=== PATIENT | female | born 2000 | race American Indian/Alaskan Native ===

== ENCOUNTER 2021-12-02 22:36 | Emergency (ER) | payer SELFPAY ==
--- NOTE | 2021-12-02 23:19 | XRay Report ---
CHEST 2 VIEWS INDICATION / CLINICAL INFORMATION: Upper Respiratory Infection. COMPARISON: None available. FINDINGS: SUPPORT DEVICES: None. HEART / MEDIASTINUM: No significant abnormality. LUNGS / PLEURA: There is bilateral peribronchial thickening. The lungs are otherwise clear. No signif icant pleural effusion. No pneumothorax. ADDITIONAL FINDINGS: No significant additional findings. IMPRESSION: Findings suggestive of reactive airway disease versus bronchitis. No other acute findings in the ches t. Signer Name: Armani Harrington MD Signed: 12/02/2021 11:14 PM Workstation Name: [id number]
[2021-12-03 05:43] VITALS: BP 142/87
[2021-12-03] MEDS ORDERED: BENZONATATE 100 MG CAP PO ONE (09:36)
[2021-12-03] MEDS ORDERED: predniSONE 20 MG TAB PO ONE (09:36)
[2021-12-03] MEDS ORDERED: IPRATROPIUM/ALBUTEROL SULFATE 3 ML AMPUL.NEB IH ONE (09:36)
[2021-12-03] MEDS ORDERED: IBUPROFEN 800 MG TAB PO ONE (10:01)
--- NOTE | 2021-12-03 10:06 | Emergency Department Report ---
- General Chief Complaint: Upper Respiratory Infection Stated Complaint: ABD PAIN,CHEST PAIN Time Seen by Provider: 12/03/21 08:35 Source: patient Mode of arrival: Ambulatory Limitations: No Limitations - History of Present Illness Initial Comments: This is a 21-year-old female nontoxic, well nourished in appearance, no acute signs of distress presents to the ED with c/o of productive cough, chills, body aches, rhinorrhea, wheezing, nasal congestion x several days. Patient denies being COVID vaccinated. Patient describes productive cough as yellow mucus production. Patient denies any sick contacts. Patient denies any recent travels, long car, recent hospital stays. Patient denies any calf pain or calf tenderness. Patient denies any chest pain, short of breath, nausea, vomiting, hemoptysis, numbness, tingling, headache or stiff neck. Patient stated allergies to PCN. MD Complaint: cough, rhinorrhea, nasal congestion -: days(s) Severity: mild Severity scale (0 -10): 3 Quality: aching Consistency: constant Improves With: nothing Worsens With: nothing Associated Symptoms: chills, rhinorrhea, nasal congestion, cough. denies: fever, myalgias, diaphoresis, headache, sore throat, stiff neck, chest pain, shortness of breath, abdominal pain, nausea, vomiting, diarrhea, dysuria, rash, confusion, right sweats, weight loss, epistaxis, hoarseness, ear pain - Related Data Previous Rx's Medication Instructions Recorded Last Taken Type Albuterol Mdi (or & Nicu Only) 2 puff IH QID PRN #8.5 gram 12/03/21 Unknown Rx [ProAir HFA Inhaler] Benzonatate [Tessalon Perles] 100 mg PO Q8HR PRN #12 cap 12/03/21 Unknown Rx Allergies Allergy/AdvReac Type Severity Reaction Status Date / Time Penicillins Allergy Hives Verified 12/02/21 22:39 ED Review of Systems ROS: Stated complaint: ABD PAIN,CHEST PAIN Other details as noted in HPI Comment: All other systems reviewed and negative Constitutional: chills. denies: fever Eyes: denies: eye pain, eye discharge, vision change ENT: congestion. denies: ear pain, throat pain Respiratory: cough, wheezing. denies: shortness of breath Cardiovascular: denies: chest pain, palpitations Endocrine: no symptoms reported Gastrointestinal: denies: abdominal pain, nausea, diarrhea Genitourinary: denies: urgency, dysuria, discharge Musculoskeletal: denies: back pain, joint swelling, arthralgia Skin: denies: rash, lesions Neurological: denies: headache, weakness, paresthesias Psychiatric: denies: anxiety, depression Hematological/Lymphatic: denies: easy bleeding, easy bruising ED Past Medical Hx - Past Medical History Previous Medical History?: No - Surgical History Past Surgical History?: No - Social History Smoking Status: Current Every Day Smoker Substance Use Type: Marijuana - Medications Home Medications: Home Medications Medication Instructions Recorded Confirmed Last Taken Type Albuterol Mdi (or & Nicu Only) 2 puff IH QID PRN #8.5 gram 12/03/21 Unknown Rx [ProAir HFA Inhaler] Benzonatate [Tessalon Perles] 100 mg PO Q8HR PRN #12 cap 12/03/21 Unknown Rx ED Physical Exam - General Limitations: No Limitations General appearance: alert, in no apparent distress - Head Head exam: Present: atraumatic, normocephalic - Eye Eye exam: Present: normal appearance - ENT ENT exam: Present: normal exam, normal orophraynx - Neck Neck exam: Present: normal inspection, full ROM. Absent: tenderness, meningismus, lymphadenopathy - Respiratory Respiratory exam: Present: wheezes (Bilateral expiratory wheezing). Absent: respiratory distress, rales, rhonchi, stridor, chest wall tenderness, accessory muscle use, decreased breath sounds, prolonged expiratory - Cardiovascular Cardiovascular Exam: Present: normal rhythm, normal heart sounds. Absent: systolic murmur, diastolic murmur, rubs, gallop - GI/Abdominal GI/Abdominal exam: Present: soft. Absent: distended, tenderness - Extremities Exam Extremities exam: Present: normal inspection, full ROM, normal capillary refill. Absent: tenderness - Back Exam Back exam: Present: normal inspection, full ROM. Absent: tenderness, CVA tenderness (R), CVA tenderness (L), muscle spasm, paraspinal tenderness, vertebral tenderness, rash noted - Neurological Exam Neurological exam: Present: alert, oriented X3, normal gait - Psychiatric Psychiatric exam: Present: normal affect, normal mood - Skin Skin exam: Present: warm, dry, intact, normal color. Absent: rash ED Course Vital Signs 12/02/21 12/03/21 12/03/21 22:39 01:02 05:42 Temperature 99.4 F Pulse Rate 122 H 115 H 107 H Respiratory 18 16 18 Rate Blood Pressure 148/81 Blood Pressure 140/81 142/87 [Left] O2 Sat by Pulse 97 100 100 Oximetry 12/03/21 10:43 Temperature 98.8 F Pulse Rate 88 Respiratory 18 Rate Blood Pressure Blood Pressure [Left] O2 Sat by Pulse 100 Oximetry - Reevaluation(s) Reevaluation #1: 12/03/21 10:06 Patient is speaking in full sentences with no signs of distress noted. ED Medical Decision Making - Radiology Data [facility] [address] [place] [address] XRay Report Signed Patient: LAQUITA LUCAS MR#: [id number] : 2000 Acct:[id number] Age/Sex: 21 / F ADM Date: 12/02/21 Loc: ED Attending Dr: Ordering Physician: JULIETH CUMMINS MD Date of Service: 12/02/21 Procedure(s): XR chest routine 2V Accession Number(s): [id number] cc: JULIETH CUMMINS MD Fluoro Time In Minutes: CHEST 2 VIEWS INDICATION / CLINICAL INFORMATION: Upper Respiratory Infection. COMPARISON: None available. FINDINGS: SUPPORT DEVICES: None. HEART / MEDIASTINUM: No significant abnormality. LUNGS / PLEURA: There is bilateral peribronchial thickening. The lungs are otherwise clear. No significant pleural effusion. No pneumothorax. ADDITIONAL FINDINGS: No significant additional findings. IMPRESSION: Findings suggestive of reactive airway disease versus bronchitis. No other ac [place] findings in the chest. Signer Name: Armani Harrington MD Signed: 12/02/2021 11:14 PM Workstation Name: [id number] Transcribed By: [place] Dictated By: Armani Harrington MD Electronically Authenticated By: Armani Harrington MD Signed Date/Time: 12/02/212313 DD/ 13 TD/TT: - Medical Decision Making This is a 21-year-old female that presents with Bronchitis. Patient is stable and was examined by me. Chest x-ray has been obtained and dictated by radiologist. Patient is notified of x-ray results with no questions noted. Patient does meet clinical concerns of COVID-19 and patient was instructed and educated on signs and symptoms and to self quarantine and seek medical attention as soon as possible if symptoms worsen and contiue. Patient was instructed to increase hydration, rest and take Motrin for fever episodes. Patient received breathing treatment, prednisone in the ED. Posttreatment and there is no wheezing upon auscultation. Vitals stable. Patient is nonfebrile and normal heart rate. Patient was instructed Follow-up with a primary care doctor in 3-5 days or if symptoms worsen and continue return to emergency room as soon as possible. At time time of discharge, the patient does not seem toxic or ill in appearance. No acute signs of distress noted. Patient agrees to discharge treatment plan of care. No further questions noted by the patient. Critical care attestation.: If time is entered above; I have spent that time in minutes in the direct care of this critically ill patient, excluding procedure time. ED Disposition Clinical Impression: Bronchitis Disposition: 01 HOME / SELF CARE / HOMELESS Is pt being admited?: No Does the pt Need Aspirin: No Condition: Stable Instructions: Chronic Bronchitis (ED) Additional Instructions: Follow-up with a primary care doctor in 3-5 days or if symptoms worsen and continue return to emergency room as soon as possible. Your symptoms appear most consistent with a bronchitis. However, given this current pandemic, COVID-19 is in the differential of possibilities. Despite your previous negative COVID-19 test, I do recommend repeat outpatient Covid 19 testing. In the meantime, isolate/quarantine yourself and stay away from anyone who is elderly, immunocompromised or chronically ill. Please see your nearest health department or primary care doctor that you are referred to for COVID testing. Increased rest, hydration, and take [id number] Tylenol as directed from instructions label for pain/fever episode. Prescriptions: Albuterol Mdi (or & Nicu Only) [ProAir HFA Inhaler] 2 puff IH QID PRN #8.5 gram PRN Reason: Shortness Of Breath Benzonatate [Tessalon Perles] 100 mg PO Q8HR PRN #12 cap PRN Reason: Cough Referrals: MAXIMILIANO YANCEY MD [Primary Care Provider] - 3-5 Days PRIMARY CAREMD [Referring] - 3-5 Days Forms: Work/School Release Form(ED) Time of Disposition: 10:46
[2021-12-03] MEDS ORDERED: ONDANSETRON 4 MG ODT TAB PO ONE (10:56)
== END 2021-12-03 11:25 | disposition home or self-care (01) ==
LOC: ED 22:36
DX: J40 Bronchitis, not specified as acute or chronic (principal); Z88.0 Allergy status to penicillin; F17.200 Nicotine dependence, unspecified, uncomplicated
CPT/HCPCS: 71046; 94640; 99283